=== PATIENT | male | born 1995 ===

== ENCOUNTER 2021-09-06 14:19 | Emergency (ER) | payer SELFPAY ==
[2021-09-06] MEDS ORDERED: Tetracaine HCl/PF 0.5% 4 ML Bottle EYERT ONE (14:37)
[2021-09-06] MEDS ORDERED: Fluorescein 1 MG Ophth Strip EYERT ONE (14:38)
[2021-09-06] MEDS ORDERED: Gentamicin 0.3% Ophth Soln 5 ML Bottle EYERT ONE (14:43)
[2021-09-06] MEDS ORDERED: Ondansetron 4 MG Tab.DIS PO ONE (14:47)
[2021-09-06] MEDS ORDERED: Acetaminophen/HYDROcodone 325-10 MG Tab PO ONE (14:47)
== END 2021-09-06 15:39 | disposition home or self-care (01) ==
LOC: DL.ED 14:19
DX: S05.01XA Injury of conjunctiva and corneal abrasion without foreign body, right eye, initial encounter (principal); H10.211 Acute toxic conjunctivitis, right eye; T50.3X5A Adverse effect of electrolytic, caloric and water-balance agents, initial encounter
CPT/HCPCS: 99283; A9270

== ENCOUNTER 2024-03-11 12:35 | Emergency (ER) | payer BC ==
[2024-03-11] MEDS: cefTRIAXone 1 GM, Lidocaine 1% 2.1 ML IM ONE (13:11)
== END 2024-03-11 13:25 | disposition home or self-care (01) ==
LOC: DL.ED 12:35
DX: L03.113 Cellulitis of right upper limb (principal); Z90.49 Acquired absence of other specified parts of digestive tract
CPT/HCPCS: 96372; 99283; J0696; J3490